=== PATIENT | male | born 1940 | race Caucasian/White ===

== ENCOUNTER 2016-09-08 06:25 | Day surgery (SDC) | payer BC ==
[2016-09-08] MEDS ORDERED: ONDANSETRON HCL IV 4 MG/2 ML VIAL IVP ONE (06:35)
[2016-09-08] MEDS ORDERED: MORPHINE SULFATE 5 MG/ML PFS IVP ONE (06:35)
[2016-09-08] MEDS ORDERED: 0.9 % SODIUM CHLORIDE 1000ML 1,000 ML IV SCH (06:45)
[2016-09-08 06:50] LABS: HEMATOCRIT 40.9 % (42.0-52.0); HEMOGLOBIN 13.5 gm/dl (14.0-18.0); MEAN CELL VOLUME 87.6 fl (81-97); MEAN CORPUSCULAR HEMOGLOBIN 28.9 pg (27-33); MEAN PLATELET VOLUME 9.3 fl (7.4-10.4); PLATELET COUNT 244 K/uL (130-400); RED BLOOD COUNT 4.67 M/uL (4.40-5.70); RED CELL DISTRIBUTION WIDTH 12.9 % (11.5-14.5); WHITE BLOOD COUNT W/O DIFF 12.3 K/uL (4.2-12.2)
--- NOTE | 2016-09-08 06:50 | Emergency Department Record ---
History of Present Illness - General Chief Complaint: Abdominal Pain Stated Complaint: ABDOMINAL PAIN Time Seen by Provider: 09/08/16 06:35 Source: Patient Mode of Arrival: Ambulatory Limitations: No limitations - History of Present Illness Initial Comments: 76 yo male presents to ED with a CC of abdominal pain, nausea, and vomiting symptoms that began last night approximately 9 hours ago, progressively worsening symptoms. Patient denies fevers, chills, or recent illness, denies health problems at his baseline. Patient reports hernia repair x 2, denies debra or appendectomy previously. Patient reports similar symptoms several years go that was "gas". MD Complaint: Abdominal pain Onset/Timin -: Hour(s) Location: Diffuse Radiation: Back Severity: Moderate Quality: Aching Consistency: Constant Improves With: Nothing Worsens With: Nothing - Related Data Allergies Allergy/AdvReac Type Severity Reaction Status Date / Time Penicillins Allergy SWELLING Verified 07/20/14 14:34 (GENERAL) Travel Screening - Travel/Exposure Within Last 30 Days Have you traveled within the last 30 days?: No Review of Systems Constitutional: Denies: Chills, Fever, Malaise, Night sweats Eyes: Denies: Eye discharge, Eye pain ENT: Denies: Congestion, Ear pain, Epistaxis Respiratory: Denies: Cough, Dyspnea Cardiovascular: Denies: Chest pain, Dyspnea on exertion Endocrine: Denies: Fatigue, Heat or cold intolerance Gastrointestinal: Reports: Abdominal pain, Nausea, Vomiting Genitourinary: Denies: Incontinence, Retention Musculoskeletal: Denies: Arthralgia, Back pain, Gout, Joint swelling Skin: Denies: Bruising, Change in color Neurological: Denies: Abnormal gait, Confusion, Headache, Seizure Psychiatric: Denies: Anxiety Hematological/Lymphatic: Denies: Anemia, Blood Clots Past Medical History - SOCIAL HISTORY Smoking Status: Former smoker Alcohol Use: None Drug Use: None - RESPIRATORY Hx Respiratory Disorders: No - CARDIOVASCULAR Hx Cardio Disorders: No - NEURO Hx Neuro Disorders: No - GI Hx GI Disorders: Yes Hx Abdominal Pain: Yes (hernias x's 2 umbilicus and right inguinal) - Hx Genitourinary Disorders: No - ENDOCRINE Hx Endocrine Disorders: No - MUSCULOSKELETAL Hx Musculoskeletal Disorders: Yes Hx Arthritis: Yes (right shoulder) - PSYCH Hx Psych Problems: No - HEMATOLOGY/ONCOLOGY Hx Hematology/Oncology Disorders: Yes Comment:: raynauds? Family Medical History Any Significant Family History?: Yes Hx Diabetes: Father Hx Heart Disease: Father Physical Exam - General General Appearance: Alert, Oriented x3, Cooperative, Moderate distress Limitations: No limitations - Head Head exam: Atraumatic, Normocephalic, Normal inspection Head exam detail: negative: Abrasion, Contusion, Srivastava's sign, General tenderness, Hematoma, Laceration - Eye Eye exam: Normal appearance. negative: Conjunctival injection, Periorbital swelling, Periorbital tenderness, Scleral icterus - ENT Ear exam: negative: Auricular hematoma, Auricular trauma Nasal Exam: negative: Active bleeding, Discharge, Dried blood, Foreign body Mouth exam: negative: Drooling, Laceration, Muffled voice, Tongue elevation - Neck Neck exam: Normal inspection. negative: Meningismus, Tenderness - Respiratory Respiratory exam: Normal lung sounds bilaterally. negative: Rales, Respiratory distress, Rhonchi, Stridor - Cardiovascular Cardiovascular Exam: Regular rate, Normal rhythm, Normal heart sounds - GI/Abdominal GI/Abdominal exam: Soft, Tenderness (TTP epigastric region on examination, no rebound, no guarding present). negative: Rebound, Rigid - Rectal Rectal exam: Deferred - exam: Deferred - Extremities Extremities exam: Normal inspection. negative: Calf tenderness, Pedal edema, Tenderness - Back Back exam: Denies: CVA tenderness (R), CVA tenderness (L) - Neurological Neurological exam: Alert, Normal gait, Oriented X3 - Psychiatric Psychiatric exam: Normal affect, Normal mood - Skin Skin exam: Normal color. negative: Abrasion Type of lesion: negative: abrasion Course Vital Signs 09/08/16 06:27 Temperature 97.9 F Pulse Rate 90 Respiratory 18 Rate Blood Pressure 157/98 Pulse Ox 100 - Reevaluation(s) Reevaluation #1: 09/08/16 07:49 EKG: NSR 85 Normal axis, normal intervals No acute ST-T wave changes No Change from 02/11/16 09/08/16 07:51 Labs reviewed, WBC 12.3, 94% Neutrophils, labs are otherwise grossly unremarkable for an acute process. UA pending. Reevaluation #2: 09/08/16 08:06 CT Abdomen and Pelvis: 9x7 basilar nodule, nothing acute. patient reassessed and updated on all results, will perform US of the GB for further evaluation of his symptoms. Patient is in agreement with the plan of care as discussed. Reevaluation #3: 09/08/16 10:34 US abdomen: Numerous mobile stones within the gallbladder, mild wall thickening , kelly-cholecystic fluids is present, no dilation of the CBD. Patient was updated on all results, reports pain is 4-5/[address] Headley paged for consultation. Reevaluation #4: 09/08/16 11:07 Case was discussed with Dr. Headley, will admit for surgery later today. Patient and family were updated on the plan for admission. Medical Decision Making - Lab Data Result diagrams: 09/08/16 06:40 09/08/16 06:40 Disposition Disposition: Admit Clinical Impression: Cholecystitis, acute Disposition: Still a Patient at [facility] Decision to Admit: Admit from ER Decision to Admit Date: 09/08/16 Decision to Admit Time: 10:36 Condition: (2) Stable Forms: Patient Portal Access Time of Disposition: 10:36
[2016-09-08] MEDS ORDERED: HYDROMORPHONE HCL 1 MG/ML CPJ IVP ONE (06:55)
[2016-09-08 07:06] LABS: ALB/GLOB RATIO 1.4 (1.1-1.8); ALBUMIN 4.4 gm/dL (3.5-5.0); ALKALINE PHOSPHATASE 117 U/L (38-126); ALT/SGPT 30 U/L (21-72); ANION GAP 7.7 (7-16); AST/SGOT 24 U/L (17-59); BILIRUBIN,TOTAL 0.86 mg/dL (0.2-1.3); BLOOD UREA NITROGEN 15 mg/dL (9-20); CARBON DIOXIDE 25.3 mmol/L (22-30); CREATININE 0.9 mg/dL (0.66-1.25); EST GLOMERULAR FILTRATION RATE > 60 ml/min; GLUCOSE,RANDOM 135 mg/dL (70-110); LIPASE 73 U/L (23-300); TOTAL PROTEIN 7.5 gm/dL (6.3-8.2)
[2016-09-08 08:05] LABS: URINE APPEARANCE CLEAR; URINE BILIRUBIN NEGATIVE (NEGATIVE); URINE BLOOD NEGATIVE (NEGATIVE); URINE COLOR YELLOW; URINE GLUCOSE (UA) NEGATIVE (NEGATIVE); URINE KETONE 15 mg/dL (NEGATIVE); URINE LEUKOCYTE ESTERASE NEGATIVE (NEGATIVE); URINE NITRITE NEGATIVE (NEGATIVE); URINE PROTEIN NEGATIVE (NEGATIVE); URINE UROBILINOGEN 0.2 E.U./dL (0.20 - 1.00)
[2016-09-08] MEDS ORDERED: ERTAPENEM SODIUM 1 G in 0.9 % SODIUM CHLORIDE 100ML 100 ML IVPB ONE (10:53)
[2016-09-08] MEDS ORDERED: HYDROCODONE/APAP 5/325MG TABLET PO ONE (14:00)
[2016-09-08] MEDS ORDERED: FAMOTIDINE 20MG TABLET PO ONE (15:21)
[2016-09-08] MEDS ORDERED: METOCLOPRAMIDE 10 MG TABLET PO ONE (15:21)
[2016-09-08] MEDS ORDERED: MECLIZINE 25 MG TABLET PO ONE (15:21)
[2016-09-08] MEDS ORDERED: ACETAMINOPHEN 1,000 MG/100 ML BTL IV ONE (15:21)
--- NOTE | 2016-09-09 14:28 | CT SCAN REPORT ---
EXAM: CT OF THE ABDOMEN AND PELVIS HISTORY: UPPER ABDOMINAL PAIN. TECHNIQUE: CT of the abdomen and pelvis was performed following the IV administration of 100 ml of Omnipaque 300 contrast. Lack of oral contrast limits evaluation of bowel. Comparison: 02/11/16 CT. FINDINGS: Limited evaluation of the lung bases shows stable emphysematous changes. Stable areas of pleural thickening and nodularity in the right lung base. 7.9 mm nodule in the right lung base is unchanged. There are two immediately adjacent stable 4 mm ground glass nodules in the left lung base laterally with two other stable subpleural nodules in the lateral left lung base. The osseous structures are grossly intact. Small hiatal hernia. Stable subcentimeter hypodensities in the liver which may relate to tiny cysts or hemangiomas. Mild distention of the gallbladder. The spleen, adrenal glands, pancreas, and kidneys are unremarkable. Moderate atheromatous change. No gross evidence for bowel obstruction. Sigmoid diverticulosis. No CT evidence for diverticulitis. No free air or free fluid. Normal appendix. 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 IMPRESSION: 1. THE GALLBLADDER APPEARS MILDLY DISTENDED. CORRELATE WITH HISTORY. 2. MULTIPLE STABLE PULMONARY NODULES WITHIN THE LUNG BASES. 3. SIGMOID DIVERTICULOSIS. NO CT EVIDENCE FOR DIVERTICULITIS. 4. STABLE ATHEROMATOUS CHANGES. 5. SMALL HIATAL HERNIA. JOB NUMBER: [id number] MTDD
--- NOTE | 2016-09-09 14:51 | ULTRASOUND REPORT ---
EXAM: ULTRASOUND OF THE ABDOMEN HISTORY: ABDOMINAL PAIN. TECHNIQUE: Complete transabdominal ultrasound of the abdomen was obtained. Comparison: CT from the today's date. FINDINGS: Subcentimeter hypodensities seen within the liver on CT are not well appreciated on the ultrasound. Subjective gallbladder wall thickening with pericholecystic fluid. Multiple gallstones. The CBD is normal at 5.8 mm. There is also a nonmobile, nonshadowing 4 mm echogenic focus adherent to the gallbladder wall likely related to tiny polyp. The spleen is normal at 9 cm. The kidneys are unremarkable in echogenicity and appearance. No free fluid. Limited evaluation of the pancreas is unremarkable. Atheromatous changes of the abdominal aorta. The IVC is unremarkable. IMPRESSION: CHOLELITHIASIS. GALLBLADDER POLYP ALSO PRESENT. THE GALLBLADDER WALL APPEARS MILDLY THICKENED AND THERE IS SUGGESTION OF PERICHOLECYSTIC FLUID. ACUTE CHOLECYSTITIS IS NOT EXCLUDED BASED ON THIS EXAM. JOB NUMBER: [id number] MTDD
--- NOTE | 2016-09-12 10:37 | Operative Note ---
DATE OF SURGERY: 09/08/2016 PREOPERATIVE DIAGNOSIS: Acute cholecystitis. POSTOPERATIVE DIAGNOSIS: Acute gangrenous cholecystitis. OPERATION: Laparoscopic cholecystectomy. Indication: The patient is a 76-year-old male who presented to the hospital with ongoing abdominal pain. This was going on for the last 24 hours. Imaging studies did show findings consistent with acute cholecystitis with pericholecystic fluid and gallbladder wall thickening with stones. He had a clinical exam that did fit the same. We did discuss cholecystectomy versus medical management. He desired surgical intervention. His risks include but are not limited to bleeding, infection, ductal injury, possible conversion to open, postoperative bile leak. He understood this fully. PROCEDURE: Thereafter, consent was signed and questions answered. He was taken to the operating room and placed in a supine position. General anesthesia was administered per the department of anesthesia. The patient's abdomen was prepped and draped in the usual fashion. At this time, adequate timeout was performed. He did receive preoperative antibiotic in the ER. I did go in the infraumbilical region secondary to his prior open umbilicus herniorrhaphy with mesh. This 2 cm incision was made. This was carried down to the anterior rectus fascia. This was incised. Ricardo clamps were placed on the fascial edges and brought up into the wound. Stay sutures of 0 Vicryl were placed. Posterior rectus sheath was identified and incised. The peritoneal cavity was entered bluntly. At this time, a 10 mm blunt Lizbeth port was placed. Adequate pneumoperitoneum was established. Under direct visualization, additional 5 mm epigastric and two 5 mm right subcostal ports were placed. There was a fairly significant amount of fluid around the liver which was suctioned free. The gallbladder was very tense and distended, very elongated and noted to be gangrenous at the fundus. At this time a needle was used to decompress the gallbladder of about 80 mL of purulent bile. At this time, the gallbladder was retracted in a cephalad and lateral direction. Both the transverse colon as well as duodenum were stuck to the anterior surface. These were taken down with laparoscopic Metzenbaum scissors. No sources were used in the bowel at all. At this time, the hepatocystic triangle was thoroughly dissected out. The distal half of the gallbladder was released from the cystic plate elongating our retro-cystic space. The cystic duct and cystic artery were clearly identified. There was no aberrant anatomy, no posterior ductal structures. Each one was doubly clipped and cut in a standard fashion. Gallbladder was essentially peeled off the liver secondary to the edema and inflammatory nature. This was placed in an EndoCatch bag and brought out through the infraumbilical port. I did have to stretch this a bit to accompany the large size of the gallbladder. At this time, the peritoneal cavity was irrigated with approximately 1000 mL of sterile saline. There was no bleeding, no bile leaking, no bowel injury noted. At this time, the patient was leveled out and pneumoperitoneum was released. All ports were removed. The fascia was closed with 0 Vicryl in a [id number]-[id number] fashion. The skin at all 4 ports closed with 4-0 Vicryl. He was taken to the recovery room in satisfactory condition. FINDINGS AT THE TIME OF SURGERY: Acute gangrenous cholecystitis. CC: Dr. Vick PARRA
== END 2016-09-08 17:00 | disposition home or self-care (01) ==
LOC: ER 06:25 → SUR 06:25 → EDSTATUS 07:13 → SUR 13:54 → ER 13:55 → EDSTATUS 15:16 → SUR 17:00
PROVIDERS: ATTEND Surgery
DX: K80.10 Calculus of gallbladder with chronic cholecystitis without obstruction (principal)
CPT/HCPCS: 99285 ×2; 96374; 96375; 83605; 83690; 80053; 81003; 85027; 76700; 74177; 93005; 93010; 47562; 00790; Q9967; J1335; J2405; J1170; J2270; J7030

== ENCOUNTER 2018-08-18 10:56 | Day surgery (SDC) | payer BC ==
[2018-08-18] MEDS ORDERED: PROPOFOL 10 MG/ML VIAL IV ONE (10:57)
[2018-08-18] MEDS ORDERED: LIDOCAINE 2% MDV (20MG/ML) 20ML VIAL IV ONE (10:57)
--- NOTE | 2018-08-19 08:50 | Operative Note ---
OPERATION: 1. ESOPHAGOGASTRODUODENOSCOPY with biopsy. 2. COLONOSCOPY with hot snare polypectomy. PREOPERATIVE DIAGNOSIS: Abdominal pain, history of reflux, and colon cancer screening. POSTOPERATIVE DIAGNOSES: 1. Irregular GE junction, rule out short-segment Cobb's. 2. Nonerosive antral gastritis. 3. Diffuse duodenitis. 4. Colonic diverticulosis, left-sided greater than right. 5. Sigmoid colon polyp. SPECIMENS: GE junction, random gastric, and sigmoid colon. ESTIMATED BLOOD LOSS: Minimum. COMPLICATIONS: None apparent. PREPARATION QUALITY: Good. PROCEDURE: After informed consent was obtained from the patient, he was placed in the left lateral decubitus position in the endoscopy suite, sedated and monitored by the department of anesthesia. A well-lubricated [id number] gastroscope was placed in the posterior oropharynx under direct visualization and passed to the proximal esophagus. The endoscope was advanced through the proximal, mid, and distal esophagus. The GE junction demonstrated irregularity with a columnar tongue and erythema. The remainder of the esophagus was unremarkable. The gastric body was unrevealing; however, the antrum demonstrated nonerosive erythematous changes. The duodenal bulb and sweep demonstrated linear erythematous changes in streaky erythema as well. J-turn views of the proximal stomach were unremarkable. The endoscope was straightened. Random antral biopsies and gastric biopsies were obtained. The columnar tongue was biopsied. The endoscope removed from the patient with no new findings noted. Digital rectal exam was unremarkable. A well-lubricated [id number] colonoscope was inserted into the rectum and advanced to the cecum. Preparation quality was good. The cecum, cecal bulb, and ileocecal valve were unremarkable. 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 The cecal AVM which was also visualized was not instrumented given its nonbleeding nature. The ascending colon demonstrated scattered diverticula. The cecum was again inspected and was unremarkable. The transverse colon and descending colon were unrevealing. The sigmoid colon demonstrated [id number]-us-[id number] diverticular changes. There was also a somewhat pedunculated polyp in the distal sigmoid colon removed with a polypectomy snare and ERBE Endocut current. There was no bleeding at the site. The polyp was retrieved. The rectum was unremarkable in forward and in J-turn views. The endoscope was straightened, the rectal ampulla deflated, and the endoscope was removed. RECOMMENDATIONS: The patient should follow a high-fiber diet. He is to follow up with Dr. Headley. It is unclear. I do not have any imaging available but if imaging has not been performed, I would suggest this be considered. As always, thank you for allowing me to participate in the healthcare of your patients. CC: David Headley, DO AIDA Souza
== END 2018-08-18 13:29 | disposition home or self-care (01) ==
LOC: HOP 10:56
PROVIDERS: ATTEND Internal Medicine Gastroenterology
DX: Z12.11 Encounter for screening for malignant neoplasm of colon (principal); D12.5 Benign neoplasm of sigmoid colon; K57.30 Diverticulosis of large intestine without perforation or abscess without bleeding; Q27.33 Arteriovenous malformation of digestive system vessel; R10.9 Unspecified abdominal pain; Z87.19 Personal history of other diseases of the digestive system; K31.9 Disease of stomach and duodenum, unspecified; K22.70 Barrett's esophagus without dysplasia; K29.70 Gastritis, unspecified, without bleeding; K29.80 Duodenitis without bleeding; K20.9 Esophagitis, unspecified

== ENCOUNTER 2019-02-25 08:03 | Emergency (ER) | payer BC ==
[2019-02-25 08:31] LABS: URINE BILIRUBIN SMALL (NEGATIVE); URINE BLOOD LARGE (NEGATIVE); URINE GLUCOSE (UA) NEGATIVE (NEGATIVE); URINE KETONE TRACE (NEGATIVE); URINE LEUKOCYTE ESTERASE MODERATE (NEGATIVE); URINE NITRITE POSITIVE (NEGATIVE)
[2019-02-25 08:32] LABS: URINE APPEARANCE TURBID; URINE COLOR BROWN
--- NOTE | 2019-02-25 08:37 | Emergency Department Record ---
History of Present Illness - General Chief complaint: Male Urogenital Problem Stated complaint: MALE UROGENITAL Time Seen by Provider: 02/25/19 08:28 Source: Patient Mode of Arrival: Ambulatory Limitations: No limitations - History of Present Illness Initial comments: pt c/o dysuria and blood in urine. he has never had this before MD Complaint: Dysuria Onset/Timin -: Hour(s) Severity: Moderate Severity scale (1-10): 6 Quality: Burning Consistency: Intermittent Improves with: None Worsens with: Urination Reports: Blood in urine, Dysuria - Related Data Home Medications Medication Instructions Recorded Confirmed Last Taken Calcium Carbonate/Vitamin D3 1 each PO DAILY 02/25/19 02/25/19 02/24/19 [Calcium 600-Vit D3 2,500 Sftgl] Esomeprazole Magnesium [Nexium 20 mg PO DAILY 02/25/19 02/25/19 02/24/19 24Hr] Fluticasone/Umeclidin/Vilanter 1 puff INH DAILY 02/25/19 02/25/19 02/25/19 [Trelegy Ellipta 100-62.5-25] Garlic [Odorless Garlic] 1,250 mg PO DAILY 02/25/19 02/25/19 02/24/19 Vitamin B Complex 1 each PO DAILY 02/25/19 02/25/19 02/24/19 Previous Rx's Medication Instructions Recorded Sulfamethoxazole/Trimethoprim 1 each PO BID #14 tablet 02/25/19 [Bactrim Ds Tablet] Allergies Allergy/AdvReac Type Severity Reaction Status Date / Time Penicillins Allergy SWELLING Verified 02/25/19 08:07 (GENERAL) Travel Screening - Travel/Exposure Within Last 30 Days Have you traveled within the last 30 days?: No - Travel/Exposure Within Last Year Have you traveled outside the [place] in the last year?: No - Additonal Travel Details Have you been exposed to anyone with a communicable illness?: No Review of Systems Reviewed: No additional complaints except as noted below Constitutional: Reports: As per HPI. Denies: Chills, Fever, Malaise, Night sweats, Weakness, Weight change Eyes: Reports: As per HPI. Denies: Eye discharge, Eye pain, Photophobia, Vision change ENT: Reports: As per HPI. Denies: Congestion, Dental pain, Ear pain, Epistaxis, Hearing loss, Throat pain Respiratory: Reports: As per HPI. Denies: Cough, Dyspnea, Hemoptysis, Stridor, Wheezes Cardiovascular: Reports: As per HPI. Denies: Arrhythmia, Chest pain, Dyspnea on exertion, Edema, Murmurs, Orthopnea, Palpitations, Paroxysmal nocturnal dyspnea, Rheumatic Fever, Syncope Endocrine: Reports: As per HPI. Denies: Fatigue, Heat or cold intolerance, Polydipsia, Polyuria Gastrointestinal: Reports: As per HPI. Denies: Abdominal pain, Constipation, Diarrhea, Hematemesis, Hematochezia, Melena, Nausea, Vomiting Genitourinary: Reports: As per HPI, Dysuria, Hematuria. Denies: Frequency, Incontinence, Retention, Testicular pain, Testicular mass, Urgency Musculoskeletal: Reports: As per HPI. Denies: Arthralgia, Back pain, Gout, Joint swelling, Myalgia, Neck pain Skin: Reports: As per HPI. Denies: Bruising, Change in color, Change in hair/nails, Lesions, Pruritus, Rash Neurological: Reports: As per HPI. Denies: Abnormal gait, Confusion, Headache, Numbness, Paresthesias, Seizure, Tingling, Tremors, Vertigo, Weakness Psychiatric: Reports: As per HPI. Denies: Anxiety, Auditory hallucinations, Depression, Homicidal thoughts, Suicidal thoughts, Visual hallucinations Hematological/Lymphatic: Reports: As per HPI. Denies: Anemia, Blood Clots, Easy bleeding, Easy bruising, Swollen glands Past Medical History - SOCIAL HISTORY Smoking Status: Former smoker Alcohol Use: Rare Drug Use: None - RESPIRATORY Hx Respiratory Disorders: Yes Hx Bronchitis: Yes (winter 2016) Hx COPD: Yes - CARDIOVASCULAR Hx Cardio Disorders: No - NEURO Hx Neuro Disorders: Yes Comment:: pt has cold hands and feet all the time - GI Hx GI Disorders: Yes Hx Abdominal Pain: Yes (Began 2100 on 09/07/17, severe, continous ache, epigastric and mid abdominal) Hx Reflux: Yes (nexum) Hx Nausea/Vomiting: Yes (aSSOCIATED WITH ABDOMINAL PAIN) - Hx Genitourinary Disorders: No - ENDOCRINE Hx Endocrine Disorders: No - MUSCULOSKELETAL Hx Musculoskeletal Disorders: Yes Hx Arthritis: Yes (right shoulder) Comment:: spontanous pneumothorax in s - PSYCH Hx Psych Problems: No - HEMATOLOGY/ONCOLOGY Hx Hematology/Oncology Disorders: Yes Hx Bruising: Yes (mostly arms, hands and shoulders) Comment:: reynauds? Family Medical History Any Significant Family History?: Yes Hx Dementia: Mother Hx Diabetes: Father, Mother Hx Heart Disease: Father, Mother Physical Exam - General General Appearance: Alert, Oriented x3, Cooperative, Mild distress - Head Head exam: Normal inspection - Eye Eye exam: Normal appearance, PERRL, EOMI Pupils: Normal accommodation - ENT ENT exam: Normal exam, Mucous membranes moist, Normal external ear exam, Normal orophraynx Ear exam: Normal external inspection. negative: External canal tenderness Nasal Exam: Normal inspection. negative: Discharge, Sinus tenderness Mouth exam: Normal external inspection, Tongue normal Teeth exam: Normal inspection. negative: Dental caries Throat exam: Normal inspection. negative: Tonsillar erythema, Tonsillar exudate - Neck Neck exam: Normal inspection, Full ROM. negative: Tenderness - Respiratory Respiratory exam: Normal lung sounds bilaterally. negative: Respiratory distress - Cardiovascular Cardiovascular Exam: Regular rate, Normal rhythm, Normal heart sounds - GI/Abdominal GI/Abdominal exam: Soft, Normal bowel sounds. negative: Tenderness - Rectal Rectal exam: Deferred - exam: Deferred - Extremities Extremities exam: Normal inspection, Full ROM, Normal capillary refill. negative: Tenderness - Back Back exam: Reports: Normal inspection, Full ROM. Denies: Muscle spasm, Rash noted, Tenderness - Neurological Neurological exam: Alert, CN II-XII intact, Normal gait, Oriented X3 - Psychiatric Psychiatric exam: Normal affect, Normal mood - Skin Skin exam: Dry, Intact, Normal color, Warm Course Vital Signs 02/25/19 08:15 Temperature 98.8 F Pulse Rate 100 H Respiratory 20 Rate Blood Pressure 159/101 Pulse Ox 98 Medical Decision Making - Lab Data Result diagrams: 02/25/19 08:40 02/25/19 08:40 Lab Results 02/25/19 Range/Units 08:32 Urine Color Brown H Urine Appearance Turbid H Urine pH 6.0 (5.0-8.0) Ur Specific [place] 1.020 (1.002-1.030) Urine Protein 100 mg/dl H (NEGATIVE) Urine Glucose (UA) Negative (NEGATIVE) Urine Ketones Trace H (NEGATIVE) Urine Blood Large H (NEGATIVE) Urine Nitrite Positive H (NEGATIVE) Urine Bilirubin Small H (NEGATIVE) Urine Urobilinogen 1.0 (0.20 - 1.00) E.U./dL Ur Leukocyte Esterase Moderate H (NEGATIVE) Disposition Disposition: Discharge Clinical Impression: UTI (urinary tract infection) Qualifiers: Urinary tract infection type: acute cystitis Hematuria presence: with hematuria Qualified Code(s): N30.01 - Acute cystitis with hematuria Disposition: Home, Self-Care Condition: (1) Good Instructions: Urinary Tract Infection in Men (ED), Dysuria (ED), Hematuria (ED) Additional Instructions: follow up with family doctor and with dr beach. return sooner if worse Prescriptions: Sulfamethoxazole/Trimethoprim [Bactrim Ds Tablet] 1 each PO BID #14 tablet Referrals: Mc Eli M.D. [MEDICAL DOCTOR] - [facility] [Provider Group] Forms: Patient Portal Access Quality - Quality Measures Quality Measures: N/A - Blood Pressure Screening Does Patient Have Any of the Following: No Blood Pressure Classification: Hypertensive Reading Systolic Measurement: 159 Diastolic Measurement: 101 Screening for High Blood Pressure: < First Hypertensive BP, F/U Documented > [G8950] First Hypertensive Follow-up Interventions: Follow-up with rescreen GT 1 day and LT 4 weeks.
[2019-02-25 08:39] LABS: URINE BACTERIA 4+; URINE EPITHELIAL CELLS NONE SEEN (FEW)
[2019-02-25 08:49] LABS: HEMATOCRIT 40.6 % (42.0-52.0); HEMOGLOBIN 13.5 gm/dl (14.0-18.0); MEAN CELL VOLUME 87.3 fl (81-97); MEAN CORPUSCULAR HGB CONC 33.3 g/dl (32-36); MEAN PLATELET VOLUME 8.7 fl (7.4-10.4); PLATELET COUNT 234 K/uL (130-400); RED BLOOD COUNT 4.65 M/uL (4.40-5.70); RED CELL DISTRIBUTION WIDTH 13.5 % (11.5-14.5); WHITE BLOOD COUNT W/O DIFF 16.5 K/uL (4.2-12.2)
[2019-02-25 09:13] LABS: PROSTATE SPECIFIC ANTIGEN SCR 2.68 ng/mL (0.0-4.4)
[2019-02-25 09:18] LABS: BLOOD UREA NITROGEN 11 mg/dL (8-23); CREATININE 0.8 mg/dL (0.7-1.2); EST GLOMERULAR FILTRATION RATE > 60 mL/min
[2019-02-25 09:19] LABS: TOTAL PROTEIN 7.1 g/dL (6.6-8.7)
[2019-02-25 09:21] LABS: GLUCOSE,RANDOM 139 mg/dL (74-109)
[2019-02-25 09:23] LABS: ALT/SGPT 15 U/L (<41); AST/SGOT 17 U/L (10.0-50.0)
[2019-02-25 09:24] LABS: ALB/GLOB RATIO 1.5 (1.1-1.8); ALBUMIN 4.3 g/dL (4.0-5.0); ALKALINE PHOSPHATASE 121 U/L (40-129)
== END 2019-02-25 10:17 | disposition home or self-care (01) ==
LOC: ER 08:03
DX: N30.01 Acute cystitis with hematuria (principal)
CPT/HCPCS: 99283 ×2; 80053; 81001; 85027; G0103